=== PATIENT | female | born 1960 | race Caucasian/White ===

== ENCOUNTER 2017-10-07 11:23 | Emergency (ER) | payer SELFPAY ==
[~2017-10-07] VITALS: Ht 170.2 cm; Wt 54.8 kg
[~2017-10-07 11:23] MED LIST: DIPATR PO; PROM25 PO; SULF10OPSA OD
[2017-10-07] MEDS ORDERED: Voltaren100 GM TOP (13:07)
[2017-10-07] MEDS ORDERED: Robaxin500 MG PO (13:07)
[2017-10-07] MEDS ORDERED: NAPR550 PO (13:07)
== END 2017-10-07 13:21 | disposition home or self-care (01) ==
LOC: ER 11:23
DX: M47.816 Spondylosis without myelopathy or radiculopathy, lumbar region (principal); M43.16 Spondylolisthesis, lumbar region; F17.200 Nicotine dependence, unspecified, uncomplicated
CPT/HCPCS: 72070; 72100; 96372; 99283; J1885